=== PATIENT | male | born 1965 | race Two or more races ===

== ENCOUNTER 2022-03-29 17:27 | Emergency (ER) | payer MEDICAID ==
[~2022-03-29] VITALS: Ht 162.6 cm; Wt 93.0 kg
[2022-03-29 18:01] VITALS: BP 149/95
[2022-03-29] MEDS ORDERED: LIDOCAINE 1% HCL (LOCAL ANESTH.) INJ 20ML MDV ID ONE (19:15)
[2022-03-29] MEDS ORDERED: SULF400T11 PO (20:18)
== END 2022-03-29 20:27 | disposition home or self-care (01) ==
LOC: ER 17:27
DX: K61.0 Anal abscess (principal)
CPT/HCPCS: 46050; 99284; J2001

== ENCOUNTER 2025-07-21 07:39 | Inpatient (IN) | payer MEDICAID ==
[~2025-07-21] VITALS: Ht 162.6 cm; Wt 91.3 kg
[~2025-07-21 07:39] MED LIST: BACDST PO; MUPI2CRE17 EX; SULF400T11 PO
--- NOTE | 2025-07-21 07:49 | ECG ---
[facility], [place] Test Date: 2025-07-21 Test Time: 07:45:32 Pat Name: ELIZABETH AHUJA Department: Room: 0284 Gender: M Hot Patcher: GP : 1965 Requested By: ANNEL RODRIGUEZ Order Number: [id number] Reading MD: Georges Edgar Measurements Intervals [place] Rate: 116 P: 10 MO: 152 QRS: -27 QRSD: 80 T: 8 QT: 330 QTc: 459 Interpretive Statements Sinus tachycardia LVH by voltage Electronically Signed On 07-23-2025 13:32:17 PST by Georges Edgar Please click the below link to view image of tracing.
--- NOTE | 2025-07-21 07:54 | ED.PDOC ---
HPI Comments 60 y/o M, with PMHx of HTN, DM, and HLD presents to the ED for CC of chest pain. Patient states, he has been experiencing substernal non-radiating chest pain [id number]. Patient relays, pain began to improve however, worsened as of this morning. Upon arrival to the ED, patient is tachycardic with HR of 112bpm and hypertensive with a blood pressure of 196/117mmHg. Patient denies headache, nausea, vomiting, dizziness, numbness, or weakness. No other symptoms or modifying factors are present at this time. Chief Complaint: Chest Pain Time Seen by MD: 07:45 Reviewed Notes: Nurses Notes, Medications, Allergies Allergies: Coded Allergies: NO KNOWN ALLERGIES (Unverified , 08/13/24) Home Meds Active Scripts Mupirocin Calcium (Topical) (MUPIROCIN) 2 % Cre, 1 APPLIC EX BID PRN for 7 Days, #30 GRAMS 0 Refills Prov:RAJEEV GUTIÉRREZ NP 08/13/24 Sulfamethoxazole W/Trimethopri (Bactrim Ds Tablet) 1 Tab Tb, 1 TAB PO BID for 7 Days, #14 TAB 0 Refills Prov:RAJEEV GUTIÉRREZ NP 08/13/24 Sulfamethoxazole-Trimethoprim (Bactrim) 1 Tab Tab, 1 TAB PO BID for 7 Days, #14 MG Prov:MARIEL MIMS DO 03/29/22 Information Source: Patient Mode of Arrival: Ambulatory Severity: Moderate Timing: Weeks Duration: Since onset Prehospital treatment: None Location: Substernal Radiation: No Radiation Onset: At Rest Cardiac Risk Factors: Hyperlipidemia, HTN, Diabetes PE Risk Factors: None History of: None Modifying Factors: Nothing Associated Signs and Symptoms: None Past Medical History PAST MEDICAL HISTORY: DM, HIV, HTN Surgical History: Denies all surgeries Family History Family History: Reviewed,noncontributory to illness Social History Smoker: Non-Smoker Alcohol: Denies ETOH Use Drugs: Denies Drug Use Lives In: Home Constitutional: denies: chills, diaphoresis, fatigue, fever, malaise, sweats, weakness, others EENTM: denies: blurred vision, double vision, ear bleeding, ear discharge, ear drainage, ear pain, ear ringing, eye pain, eye redness, hearing loss, mouth pain, mouth swelling, nasal discharge, nose bleeding, nose congestion, nose pain, photophobia, tearing, throat pain, throat swelling, voice changes, others Respiratory: denies: cough, hemoptysis, orthopnea, SOB at rest, shortness of breath, SOB with excertion, stridor, wheezing, others Cardiovascular: reports: chest pain; denies: dizzy spells, diaphoresis, Dyspnea on exertion, edema, irregular heart beat, left arm pain, lightheadedness, palpitations, PND, syncope, others Gastrointestinal: denies: abdomen distended, abdominal pain, blood streaked bowels, constipated, diarrhea, dysphagia, difficulty swallowing, hematemesis, melena, nausea, poor appetite, poor fluid intake, rectal bleeding, rectal pain, vomiting, others Genitourinary: denies: burning, dysuria, flank pain, frequency, hematuria, incontinence, penile discharge, penile sore, pain, testicle pain, testicle swelling, urgency, others Neurological: denies: dizziness, fainting, headache, left sided numbness, left sided weakness, numbness, paresthesia, pre-existing deficit, right sided numbness, right sided weakness, seizure, speech problems, tingling, tremors, weakness, others Musculoskeletal: denies: back pain, gout, joint pain, joint swelling, muscle pain, muscle stiffness, neck pain, others Integumetry: denies: bruises, change in color, change in hair/nails, dryness, laceration, lesions, lumps, rash, wounds, others Allergic/Immunocompromised: denies: Difficulty Healing, Frequent Infections, Hives, Itching, others Hematologic/Lymphatic: denies: anemia, blood clots, easy bleeding, easy bruising, swollen glands, others Endocrine: denies: excessive hunger, excessive sweating, excessive thirst, excessive urination, flushing, intolerance to cold, intolerance to heat, unexplained weight gain, unexplained weight loss, others Psychiatric: denies: anxiety, bipolar disorder, depression, hopeless, panic disorder, schizophrenia, sleepless, suicidal, others All Other Systems: Reviewed and Negative Physical Exam General Appearance: Moderate Distress HEENT: Normal ENT Inspection, Pharynx Normal, TMs Normal Neck: Full Range of Motion, Non-Tender, Normal, Normal Inspection Respiratory: Chest Non-Tender, Lungs Clear, No Accessory Muscle Use, No Respiratory Distress, Normal Breath Sounds Cardiovascular: No Edema, No JVD, No Murmur, No Gallop, Normal Peripheral Pulses, Regular Rate/Rhythm Breast Exam: Deferred Gastrointestinal: No Organomegaly, Non Tender, No Pulsatile Mass, Normal Bowel Sounds, Soft Genitalia: Deferred Pelvic: Deferred Rectal: Deferred Extremities: No calf tenderness, Normal capillary refill, Normal inspection, Normal range of motion, Non-tender, No pedal edema Musculoskeletal : Apperance: Normal Neurologic: Alert, leak inspector II-XII nml as Tested, No Motor Deficits, Normal Affect, Normal Mood, No Sensory Deficits Cerebellar Function: Normal Reflexes: Normal Skin: Dry, Normal Color, Warm Peripheral Pulses: 3+ Radial (R), 3+ Radial (L) Lymphatic: No Adenopathy EKG EKG : Pulse Rate (adult): 115 Matthews: Normal Cardiac Rhythm: ST Block: None Hypertrophy: None ST: Normal Was a procedure done? Was a procedure done?: No CP Differential Dx Differential Diagnosis: A-fib, A-Flutter, Angina, Anxiety / Panic Attack, Atrial Dysrhythmia, Electrolyte Disorder, Sinus Tachycardia Differential Diagnosis: HTN Essential, HTN Accelerated Differential Diagnosis: Angina, Chest Wall Pain, Costochondritis X-Ray, Labs, Meds, VS Vital Signs Date Time Temp Pulse Resp B/P (MAP) Pulse Ox O2 Delivery O2 Flow Rate FiO2 07/21/25 07:55 115 07/21/25 07:45 116 07/21/25 07:42 98.7 116 15 189/115 95 98.7 Lab Test 07/21/25 07:56 Range/Units White Blood Count 11.3 H 4.4-10.8 10^3/uL Red Blood Count 5.19 4.5-5.90 10^6/uL Hemoglobin 15.4 13.5-17.5 g/dL Hematocrit 47.2 41.0-53.0 % Mean Corpuscular Volume 91.0 80.0-100.0 fL Mean Corpuscular Hemoglobin 29.7 28.0-32.0 pg Mean Corpuscular Hemoglobin Concent 32.7 32.0-36.0 g/dL Red Cell Distribution Width 13.5 11.8-14.3 % Platelet Count 258 140-450 10^3/uL Mean Platelet Volume 7.6 6.9-10.8 fL Neutrophils (%) (Auto) 67.9 37.0-80.0 % Lymphocytes (%) (Auto) 23.2 10.0-50.0 % Monocytes (%) (Auto) 8.1 0.0-12.0 % Eosinophils (%) (Auto) 0.3 0.0-7.0 % Basophils (%) (Auto) 0.5 0.0-2.0 % Neutrophils # (Auto) 7.7 1.6-8.6 10 ^3/uL Lymphocytes # (Auto) 2.6 0.4-5.4 10 ^3/uL Monocytes # (Auto) 0.9 0-1.3 10 ^3/uL Eosinophils # (Auto) 0 0-0.8 10 ^3/uL Basophils # (Auto) 0.1 0-0.2 10 ^3/uL Nucleated Red Blood Cells 0.0 % Sodium Level Pending Potassium Level Pending Chloride Level Pending Carbon Dioxide Level Pending Anion Gap Pending Blood Urea Nitrogen Pending Creatinine Pending Glomerular Filtration Rate Calc Pending BUN/Creatinine Ratio Pending Serum Glucose Pending Calcium Level Pending Troponin I High Sensitivity Pending Patient alert. Patient came in because of chest pain. Blood pressure elevated. Answering questions. WBC elevated. Blood pressure elevated. Was given labetalol. Continues to have chest pain. Was given aspirin. Was given nitro. Has risk factors for coronary artery disease. EKG reviewed sinus tachycardic. Explained to the patient. Continue monitoring. Time of 1ST Reevaluation: 08:15 Reevaluation 1ST: Unchanged Patient Education/Counseling: Diagnosis, Treatment Family Education/Counseling: No Family Present SEPSIS Sepsis Screen Date sepsis recognized/suspect: Jul 21, 2025 Time Sepsis recognized/suspect: 744 Recent Procedure: No On Antibiotic Therapy: No Respiratory Rate >20: No Heart Rate >90: Yes Temp<36 C (96.8 F) or >38.3 C: No SBP <90 or MAP <65 mmHG: No New Acute Mental Status Change: No Is the patient on CPAP, BIPAP,: No Physician Orders Troponin-I Hs (07/21/25 07:40) Troponin-I Hs (07/21/25 08:40) Troponin-I Hs (07/21/25 10:40) Electrocardigram (07/21/25 08:40) Electrocardigram (07/21/25 10:40) Basic Metabolic Panel (07/21/25 07:40) Vital Signs Date Time Temp Pulse Resp B/P (MAP) Pulse Ox O2 Delivery O2 Flow Rate FiO2 07/21/25 07:55 115 07/21/25 07:45 116 07/21/25 07:42 98.7 116 15 189/115 95 98.7 Laboratory Tests Test 07/21/25 07:56 White Blood Count 11.3 10^3/uL (4.4-10.8) H Departure 1 Departure Time of Disposition: 08:30 Impression: Primary Impression: Chest pain of unknown etiology Additional Impressions: Hypertensive emergency Uncontrolled diabetes mellitus Qualified Codes: E13.65 - Other specified diabetes mellitus with hyperglycemia Disposition: ADMITTED INPATIENT Admit to: Med Surg Condition: Guarded Critical Care Note Critical Care Time?: Yes (90 min-critical care time only) Stability Stability form required: No Heart Score Heart Score: Heart Score Response (Comments) Value History Moderate Suspicious 1 EKG Normal 0 Age 45-64 1 Risk Factors 1 or 2 risk factors 1 Troponin Normal limit 0 Total 3 I personally scribed for ANNEL RODRIGUEZ MD ([email or web address]) on 07/21/25 at 07:54. Electronically submitted by Kia Padron ([email or web address]). I personally scribed for ANNEL RODRIGUEZ MD ([email or web address]) on 07/21/25 at 07:55. Electronically submitted by Kia Padron [email or web address]). ANNEL RODRIGUEZ MD Jul 21, 2025 07:54
[2025-07-21 08:23] LABS: Hematocrit 47.2 % (41.0-53.0); Hemoglobin 15.4 g/dL (13.5-17.5); Mean Corpuscular Hemoglobin 29.7 pg (28.0-32.0); Mean Corpuscular Volume 91.0 fL (80.0-100.0); Nucleated Red Blood Cells % 0.0 %
[2025-07-21 08:29] LABS: Chloride 101 mmol/L (98-107); Potassium 4.1 mmol/L (3.5-5.1); Sodium 139 mmol/L (136-145)
[2025-07-21 08:30] LABS: Anion Gap 12 (5-15); Carbon Dioxide 26 mmol/L (20-31)
[2025-07-21 08:31] LABS: Calcium 9.5 mg/dL (8.7-10.4)
--- NOTE | 2025-07-21 08:34 | ECG ---
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
[2025-07-21 08:36] LABS: BUN/Creatinine Ratio 6.9 (10.0-20.0); Blood Urea Nitrogen 7 mg/dL (9-23); Glucose 304 mg/dL (74-106)
[2025-07-21] MEDS: NITROGLYCERIN 0.4 MG SL TAB SL ONE (08:50)
[2025-07-21 09:35] VITALS: PULSE 109; RESP 20; O2SAT 97
[2025-07-21] MEDS: LABETALOL HCL 20 MG/4 ML VL IV ONE (09:47)
--- NOTE | 2025-07-21 10:35 | DVH ---
CHEST RADIOGRAPH Indication: chest pain Technique: Single frontal view of the chest was obtained Comparison: None FINDINGS: Lines and Tubes: None Lungs: No focal consolidation. Pleura: No effusion. No pneumothorax. Cardiomediastinal contours: Unremarkable Bones: No acute osseous abnormality. IMPRESSION: 1. No acute cardiopulmonary disease.
[2025-07-21 11:15] VITALS: PULSE 97; RESP 16; O2SAT 97
[2025-07-21] MEDS ORDERED: NITROGLYCERIN 0.4 MG SL TAB SL PRN (11:15)
[2025-07-21] MEDS: SODIUM CHLORIDE 0.9% 1,000 ML IV SCH (11:15)
[2025-07-21] MEDS ORDERED: MORPHINE SULFATE INJ 2 MG/ml SYRG IV PRN (11:15)
[2025-07-21] MEDS ORDERED: ACETAMINOPHEN 325 MG TAB PO PRN (11:15)
[2025-07-21] MEDS ORDERED: DEXTROSE (50%) 50ML SYRG IV PRN (11:30)
[2025-07-21] MEDS: ACCU-CHEK COMFORT CURVE STRIP VI SCH (11:30)
[2025-07-21] MEDS: InsuLIN REG 1unit/0.01ml Soln (100units/ml) SC SCH (11:30)
--- NOTE | 2025-07-21 11:40 | DVHHP2 ---
History of Present Illness Reason for Visit: Chest pain History of Present Illness This is a 60-year-old male with history of HIV, hypertension, hyperlipidemia, and type 2 DM who presents to ED with chief complaint of substernal nonradiating localized chest pain x2 weeks. Upon evaluating the patient states recent increased of life stressors that started development of symptoms. He reports the symptoms progressively got worse this morning and due to this prompted further medical attention. He denied previous symptoms and did not have cardiac workup in the past. Upon arrival to the ED patient was found to be tachycardic with heart rate 112 beats per minute and hypertensive with a blood pressure of 196/117 mmHg. The patient denied chest pain during evaluation. He denies illicit drug use and consumption of energy/caffeinated drinks. The patient is concerned about his symptoms and would like to be further evaluated and treated. The patient will be admitted under hospitalist care to the medical-surgical unit. The patient denies fever, chills, headache, dizziness, palpitation, shortness of breath, nausea, vomiting, abdominal pain, diarrhea, constipation and other associated symptoms. The plan has been discussed with the patient and primary RN in which all questions concerns have been addressed. Cardiovascular: HTN, hyperipidemia Endocrine: Diabetes Past Medical History HIV Past Surgical History: None Family History: None Smoke: No Drugs: None Lives: with Family Domestic Violence: Neg Review of Systems Cardiovascular: Chest Pain Allergies: Coded Allergies: NO KNOWN ALLERGIES (Unverified , 08/13/24) Medications Current Medications Medications Dose Ordered Sig/Mariam Route Start Time Stop Time Status Last Admin Dose Admin Aspirin 81 mg DAILY PO 07/22/25 10:00 UNV Hydralazine HCl 10 mg Q6HP PRN IV 07/21/25 11:15 UNV Sodium Chloride 1,000 ml @ 60 mls/hr [id number] IV 07/21/25 11:15 UNV Enoxaparin Sodium 40 mg DAILY SC 07/22/25 10:00 UNV Acetaminophen 650 mg Q6HP PRN PO 07/21/25 11:15 UNV Nitroglycerin 0.4 mg Q5MINP PRN SL 07/21/25 11:15 UNV Morphine Sulfate 2 mg Q30M PRN IV 07/21/25 11:15 UNV Diagnostic Test (Pha) 1 strip ACHS 07/21/25 11:30 UNV Insulin Human Regular ACHS SC 07/21/25 11:30 UNV Dextrose 50 ml UD PRN IV 07/21/25 11:30 UNV Exam Vital Signs Vital Signs Date Time Temp Pulse Resp B/P (MAP) Pulse Ox O2 Delivery O2 Flow Rate FiO2 07/21/25 10:48 85 149/89 07/21/25 09:35 20 97 Room Air* 0 21 07/21/25 09:35 97.9 97.9 General Appearance: Alert, Oriented X3, Cooperative, No acute distress HEENT: PERRLA, EOMI, Mucous membr. moist/pink Respiratory: Normal air movement Cardiovascular: Normal S1, Normal S2, No murmurs Abdominal: Normal bowel sounds, Soft, No tenderness, No hepatospenomegaly, No masses Extremities: No clubbing, No cyanosis, No edema, Normal pulses, No tenderness/swelling Skin: No rashes, No breakdown Neuro: Normal gait, Normal speech, Strength at 5/5 X4 ext, Normal tone, Sensation intact, Cranial nerves 3-12 NL Psych/Mental Status: Mental status NL, Mood NL Labs/Xrays Labs Test 07/21/25 11:08 07/21/25 07:56 Range/Units White Blood Count 11.3 H 4.4-10.8 10^3/uL Red Blood Count 5.19 4.5-5.90 10^6/uL Hemoglobin 15.4 13.5-17.5 g/dL Hematocrit 47.2 41.0-53.0 % Mean Corpuscular Volume 91.0 80.0-100.0 fL Mean Corpuscular Hemoglobin 29.7 28.0-32.0 pg Mean Corpuscular Hemoglobin Concent 32.7 32.0-36.0 g/dL Red Cell Distribution Width 13.5 11.8-14.3 % Platelet Count 258 140-450 10^3/uL Mean Platelet Volume 7.6 6.9-10.8 fL Neutrophils (%) (Auto) 67.9 37.0-80.0 % Lymphocytes (%) (Auto) 23.2 10.0-50.0 % Monocytes (%) (Auto) 8.1 0.0-12.0 % Eosinophils (%) (Auto) 0.3 0.0-7.0 % Basophils (%) (Auto) 0.5 0.0-2.0 % Neutrophils # (Auto) 7.7 1.6-8.6 10 ^3/uL Lymphocytes # (Auto) 2.6 0.4-5.4 10 ^3/uL Monocytes # (Auto) 0.9 0-1.3 10 ^3/uL Eosinophils # (Auto) 0 0-0.8 10 ^3/uL Basophils # (Auto) 0.1 0-0.2 10 ^3/uL Nucleated Red Blood Cells 0.0 % Sodium Level 139 136-145 mmol/L Potassium Level 4.1 3.5-5.1 mmol/L Chloride Level 101 98-107 mmol/L Carbon Dioxide Level 26 20-31 mmol/L Anion Gap 12 5-15 Blood Urea Nitrogen 7 L 9-23 mg/dL Creatinine 1.01 0.700-1.30 mg/dL Glomerular Filtration Rate Calc 86 >90 mL/min BUN/Creatinine Ratio 6.9 L 10.0-20.0 Serum Glucose 304 H 74-106 mg/dL Calcium Level 9.5 8.7-10.4 mg/dL ORDERING PHYSICIAN: ANNEL RODRIGUEZ MD PROCEDURE(s): CXR1 - CHEST XRAY 1 VIEW REASON: chest pain ORDER NUMBER(s): [id number], ACCESSION NUMBER(s): [id number] CHEST RADIOGRAPH Indication: chest pain Technique: Single frontal view of the chest was obtained Comparison: None FINDINGS: Lines and Tubes: None Lungs: No focal consolidation. Pleura: No effusion. No pneumothorax. Cardiomediastinal contours: Unremarkable Bones: No acute osseous abnormality. IMPRESSION: 1. No acute cardiopulmonary disease. IS Sepsis Screen Date sepsis recognized/suspect: Jul 21, 2025 Time Sepsis recognized/suspect: 09 Recent Procedure: No On Antibiotic Therapy: No Respiratory Rate >20: No Heart Rate >90: Yes Temp<36 C (96.8 F) or >38.3 C: No SBP <90 or MAP <65 mmHG: No New Acute Mental Status Change: No Is the patient on CPAP, BIPAP,: No Physician Orders Troponin-I Hs (07/21/25 10:40) Electrocardigram (07/21/25 10:40) Chest Xray 1 View (07/21/25 09:54) Aspirin Tablet (07/22/25 10:00) Hydralazine Injection (Apresoline Inject (07/21/25 11:15) Admit (07/21/25 11:14) 2 Gm Sodium Diet (07/21/25 Lunch) Sodium Chloride 0.9% (07/21/25 11:15) Enoxaparin Sodium (Lovenox) (07/22/25 10:00) Complete Blood Count (07/22/25 04:00) Comprehensive Metabolic Panel (07/22/25 04:00) Echo 2d Mode Cardiac Dop (07/21/25 11:14) Condition: Fair (07/21/25 11:14) Acetaminophen Tablet (Tylenol Tablet) (07/21/25 11:15) Bedrest With Bathroom Privileg (07/21/25 11:14) Nitroglycerin Sublingual (Ntrostat Subli (07/21/25 11:15) Morphine Sulfate Injection (07/21/25 11:15) Stat Ekg For Chest Pain (07/21/25 11:14) Notify Md Of Changes From Base (07/21/25 11:14) Car Installations Supervisor For 24 Hours (07/21/25 11:14) Emergency Dysrhythmia Protocol (07/21/25 11:14) Rhythm Strips Once Every Shift (07/21/25 11:14) Oxygen By Nasal Cannula (07/21/25 11:14) Glucose Blood (Accu-Chek Comfort Curve T (07/21/25 11:30) Insulin R (Human) (Insulin R) (07/21/25 11:30) Dextrose 50% Syringe (07/21/25 11:30) Vital Signs Date Time Temp Pulse Resp B/P (MAP) Pulse Ox O2 Delivery O2 Flow Rate FiO2 07/21/25 10:48 85 149/89 07/21/25 09:47 109 155/92 07/21/25 09:45 155/92 07/21/25 09:35 109 20 97 Room Air* 0 21 07/21/25 09:35 97.9 109 20 155/92 (113) 97 97.9 07/21/25 09:35 97.9 109 20 155/92 (113) 97 97.9 07/21/25 09:06 115 20 176/106 (129) 98 07/21/25 08:53 115 07/21/25 08:50 181/104 07/21/25 08:48 99.9 115 18 181/104 (129) 99 99.9 07/21/25 08:33 110 07/21/25 07:55 115 07/21/25 07:45 116 07/21/25 07:42 98.7 116 15 189/115 95 98.7 Laboratory Tests Test 07/21/25 07:56 White Blood Count 11.3 10^3/uL (4.4-10.8) H Medications Medications Dose Ordered Sig/Mariam Route Start Time Stop Time Status Last Admin Dose Admin Aspirin 325 mg ONCE ONCE PO 07/21/25 08:45 07/21/25 08:46 DC 07/21/25 08:56 325 MG Labetalol HCl 10 mg ONCE ONCE IV 07/21/25 08:45 07/21/25 08:46 DC 07/21/25 09:47 10 MG Nitroglycerin 0.4 mg ONCE ONCE SL 07/21/25 08:45 07/21/25 08:46 DC 07/21/25 08:50 0.4 MG Assessment/Plan Assessment/Plan Chest pain-chief complaint of substernal nonradiating localized chest pain x2 weeks Patient reports symptoms progressively got worse early this morning He states symptoms started two weeks ago due to increased life stressors No previous cardiac workup No complaint of chest pain upon evaluation The patient was given labetalol for elevated blood pressure along with aspirin Admit to medical-surgical unit Reviewed CBC which is normal Cardiac enzyme negative x2 Reviewed BMP which is normal Reviewed 12 lead EKG Start aspirin 81 mg daily Echocardiogram pending We will consult commercial escrow assistant for further evaluation and recommendation if needed Type 2 DM Hold antidiabetic medication for now Start regular insulin mild SS a.c. and HS Accu-Cheks per protocol 1800 ADA diet Hypertension-uncontrolled Hydralazine 10 mg IV push q.6 p.r.n. SBP greater than 150 mmHg Continue to monitor HIV Continue current regimen Reconcile home med--med need to be in put it into computer DVT prophylaxis PUD prophylaxis not indicated no history of GERD Labs in a.m. Discussed plan of care with the patient in which all questions concerns have been addressed Plan discussed with: Patient My Orders Orders - SAKSHI KAUR CUFF CUTTER Procedure Category Date Status Time Aspirin Tablet PHA 07/22/25 Logged 10:00 Hydralazine Injection PHA 07/21/25 Logged (Apresoline Inject 11:15 Admit ADMIT 07/21/25 Transmitted 11:14 2 Gm Sodium Diet DIET 07/21/25 Transmitted Lunch Sodium Chloride 0.9% PHA 07/21/25 Logged 11:15 Enoxaparin Sodium PHA 07/22/25 Logged (Lovenox) 10:00 Complete Blood Count LAB 07/22/25 Verified 04:00 Comprehensive LAB 07/22/25 Verified Metabolic Panel 04:00 Echo 2d Mode Cardiac US 07/21/25 Logged DOP 11:14 Condition: Fair [facility] 07/21/25 In Process 11:14 Acetaminophen Tablet [facility] 07/21/25 Logged (Tylenol Tablet) 11:15 Bedrest With Bathroom [facility] 07/21/25 In Process Privileg 11:14 Nitroglycerin [facility] 07/21/25 Logged Sublingual (Ntrostat 11:15 Morphine Sulfate PHA 07/21/25 Logged Injection 11:15 Stat Ekg For Chest [facility] 07/21/25 In Process Pain 11:14 Notify Md Of Changes [facility] 07/21/25 In Process From Base 11:14 Car Installations Supervisor For [facility] 07/21/25 In Process 24 Hours 11:14 Emergency Dysrhythmia [facility] 07/21/25 In Process Protocol 11:14 Rhythm Strips Once [facility] 07/21/25 In Process Every Shift 11:14 Oxygen By Nasal RT 07/21/25 Transmitted Cannula 11:14 Glucose Blood [facility] 07/21/25 Logged (Accu-Chek Comfort 11:30 Insulin R (Human) PHA 07/21/25 Logged (Insulin R) 11:30 Dextrose 50% Syringe [facility] 07/21/25 Logged 11:30 Date of Service: Jul 21, 2025 Billing Provider: SAKSHI KAUR Common Visit Codes: [id number] INP/OBS CARE (HIGH) SAKSHI KAUR CUFF CUTTER Jul 21, 2025 11:39
[2025-07-21 13:45] VITALS: BP 150/90; PULSE 80; RESP 18; TEMP 98.4; O2SAT 96
[2025-07-21] MEDS ORDERED: DIVA500T13 PO (14:33)
[2025-07-21] MEDS ORDERED: PROP60CA34 PO (14:33)
[2025-07-21] MEDS ORDERED: METF-370 PO (14:33)
[2025-07-21] MEDS ORDERED: GLIP10TA9 PO (14:33)
[2025-07-21] MEDS ORDERED: BACL10TA PO (14:33)
[2025-07-21] MEDS ORDERED: CHOL20007 PO (14:33)
[2025-07-21] MEDS ORDERED: DAPA1TAB4 PO (14:33)
[2025-07-21] MEDS ORDERED: LISI-275 PO (14:36)
[2025-07-21] MEDS ORDERED: GABA-1250 PO (14:36)
--- NOTE | 2025-07-21 15:39 | DVHSR ---
APPROVED REPORT EXAM: Two-dimensional and M-mode echocardiogram with Doppler and color Doppler. Blood Pressure: 149/89 mmHg INDICATION Chest Pain RISK FACTORS Obesity: Height: 5'4", Weight: 198 DIMENSIONS LVDd3.8 (3.8-5.7cm)LA (2D)3.4 (1.9-4.0cm)Aortic Root3.2 (2.0-3.7cm) LVDs2.8 (2.5-4.0cm)LA (MM) (1.9-4.0cm)Aortic Cusp Exc1.8 (1.5-2.0cm) EF (%) 54.0 (55-70%)Rt. Atrium3.3 (1.9-4.0cm)Asc. Aorta cm IVSd1.2 (0.7-1.1cm)RV (D) (1.8-2.4cm) PWd1.1 (0.7-1.1cm) Mitral Valve MitralMitral Stenosis E wave0.73m/sMV Mean GR.mmHg A wave0.96m/sMV Peak GR.mmHg E/A ratio0.82D MVAcm2 DECEL [id number] 1/2 Timems Aortic Valve Aortic ValveAortic Stenosis V10.83m/Calixto Mean GR.2mmHg V20.98m/Calixto Peak GR.4mmHg LVOT Diameter2.2 (1.8-2.4cm)Doppler AVA3.22cm2 Pulmonic Valve V21.14m/s Other Information Technically limited study due to body habitus. Conclusion MILD LVH AND MILD LV DIASTOLIC DYSFUNCTION LV EF IS 65% NORMAL VALVES NORMAL RV FUNCTION NO EFFUSION
[2025-07-21 17:05] VITALS: BP 164/105; PULSE 87; RESP 18; TEMP 98.4; O2SAT 95
[2025-07-21 20:00] VITALS: PULSE 95
[2025-07-21] MEDS: hydrALAZINE HCL 20 MG/ML VL ONE (20:31)
[2025-07-21] MEDS: hydrALAZINE HCL 20 MG/ML VL IV PRN (20:37)
[2025-07-21 20:43] VITALS: BP 164/98; PULSE 93; RESP 18; TEMP 98.3; O2SAT 96
[2025-07-22 00:45] VITALS: BP 168/97; PULSE 89; RESP 18; TEMP 98.3; O2SAT 97
[2025-07-22] MEDS: MELATONIN 5 MG TAB PO SCH (00:59)
[2025-07-22 02:30] VITALS: BP 145/94
[2025-07-22 04:49] VITALS: BP 170/99; PULSE 88; RESP 18; O2SAT 97
[2025-07-22] MEDS ORDERED: LORazepam 0.5 MG TAB PO PRN (06:15)
[2025-07-22] MEDS ORDERED: ENOXAPARIN SOD 40 MG/0.4 ML SYRINGE SC SCH (10:00)
== END 2025-07-22 06:00 | disposition left against medical advice (07) | DRG 199 ==
LOC: ER 07:39 → OVERFLOW 11:14 → WEST WING 13:28
PROVIDERS: ADMIT Internal Medicine; ATTEND Internal Medicine
DX: I16.0 Hypertensive urgency (principal); E11.9 Type 2 diabetes mellitus without complications; I10 Essential (primary) hypertension; E78.5 Hyperlipidemia, unspecified; Z79.899 Other long term (current) drug therapy
CPT/HCPCS: 36415; 71045; 80048; 82962; 84484; 85025; 93005; 93306; 99291; 99292; G0378; J1815